=== PATIENT | female | born 1985 | race Two or more races ===

== ENCOUNTER 2019-10-08 19:10 | Emergency (ER) | payer SELFPAY ==
[2019-10-08] MEDS ORDERED: Proparacaine 0.5% Ophth Soln 15 ML Bottle EYELF STA (19:42)
[2019-10-08] MEDS ORDERED: Fluorescein 1 MG Ophth Strip EYELF ONE (19:42)
--- NOTE | 2019-10-08 19:55 | EDM.PDOC ---
ED HPI GENERAL MEDICAL PROBLEM - General Chief Complaint: General Stated Complaint: HEADACHE Time Seen by Provider: 10/08/19 19:23 Source of Information: Reports: Patient, Other (Friend) History Limitations: Reports: Language Barrier (Friend acted as storage receipt poster) - History of Present Illness INITIAL COMMENTS - FREE TEXT/NARRATIVE: Mrs. Davison is a very pleasant 34-year-old woman with no chronic medical problems and no past surgical history, who now presents to the ED stating that she has had a foreign body sensation in her left eye for the past 3 days, althou gh she does not recall anything actually flying into her eye. She states that she has not attempted to flush her left eye, nor instill any eyedrops into the eye. She also reports that she has felt lightheaded for the past 3 days, along with perioral and tongue tingling, today. She also reports feeling tingling and numbness in both of her hands, and the sensation that she is walking on rubber legs. She reports that she has been feeling thirsty since yesterday, but has increased her oral fluids only a little bit. She also reports having a BP of 138/88 at home, prior to coming to the ED, which concerned her. The patient states that she took 1 tablet of Tylenol 2 days ago, but no other medications since. Here in the ED, the patient is found to be hemodynamically stable, with a BP of 130/98, afebrile, saturating 100% on room air. Other than her presenting symptoms, the patient denies recent fever, chills, sore throat, ear pain, nasal or sinus congestion, cough, dyspnea, chest pain, palpitations, nausea, vomiting, constipation, diarrhea, abdominal pain, urinary symptoms, recent weight gain or weight loss, recent bloody bowel movements or black bowel movements, recent joint aches, headaches, or rashes. The patient does not have a PCP. Left Eye Pain Score (Numeric/FACES): 5 - Related Data Allergies Allergy/AdvReac Type Severity Reaction Status Date / Time No Known Allergies Allergy Verified 10/08/19 19:26 Home Meds: Home Meds Ascorbic Acid [Vitamin C] 1 tab PO DAILY 10/08/19 [History] Folic Acid 0.4 mg PO DAILY 10/08/19 [History] Vitamin E 1 tab PO DAILY 10/08/19 [History] Past Medical History - Past Health History Medical/Surgical History: Denies Medical/Surgical History Social & Family History - Tobacco Use Smoking Status *Q: Former Smoker Years of Tobacco use: 15 Packs/Tins Daily: 0.1 Month/Year Tobacco Last Used: Quit May 2019 Second Hand Smoke Exposure: No - Caffeine Use Caffeine Use: Reports: Coffee - Alcohol Use Alcohol Use History: Yes Alcohol Use Frequency: Socially - Recreational Drug Use Recreational Drug Use: No - Living Situation & Occupation Living situation: Reports: , with Spouse Occupation: Unemployed ED ROS GENERAL - Review of Systems Review Of Systems: Comprehensive ROS is negative, except as noted in HPI. ED EXAM, GENERAL - Physical Exam Exam: See Below Exam Limited By: No Limitations General Appearance: Alert, WD/WN, No Apparent Distress Eye Exam: Left Eye: Other (Examined under Singletary lamp following fluorescein, with no abnormalities found), Bilateral Eye: EOMI, Normal Inspection, PERRL Ears: Normal External Exam, Hearing Grossly Normal Nose: Normal Inspection Throat/Mouth: Normal Inspection, Normal Lips, Normal Voice, No Airway Compromise Head: Atraumatic, Normocephalic Neck: Normal Inspection, Full Range of Motion Respiratory/Chest: No Respiratory Distress, Lungs Clear, Normal Breath Sounds, No Accessory Muscle Use Cardiovascular: Normal Peripheral Pulses, Regular Rate, Rhythm, No Edema, No Gallop, No JVD, No Murmur, No Rub Peripheral Pulses: 3+: Radial (L), Radial (R) GI/Abdominal: Normal Bowel Sounds, Soft, Non-Tender, No Organomegaly, No Distention, No Abnormal Bruit, No Mass (Female) Exam: Deferred Rectal (Female) Exam: Deferred Back Exam: Normal Inspection, Full Range of Motion, NT Extremities: Normal Inspection, Normal Range of Motion, No Pedal Edema, Normal Capillary Refill Neurological: Alert, Oriented, Normal Cognition, No Motor/Sensory Deficits Psychiatric: Anxious Skin Exam: Warm, Dry, Intact, Normal Color, No Rash EKG INTERPRETATION EKG Date: 10/08/19 Time: 19:54 Rhythm: Other (Sinus bradycardia) Rate (Beats/Min): 58 [place]: Normal P-Wave: Present QRS: Normal ST-T: Normal QT: Normal Comparison: NA - No Prior EKG Course - Vital Signs Last Recorded V/S: Last Vital Signs Temp 36.2 C 10/08/19 19:23 Pulse 72 10/08/19 19:23 Resp 16 10/08/19 19:23 BP 113/98 H 10/08/19 19:23 Pulse Ox 100 10/08/19 19:23 Orthostatic Blood Pressure [ 108/95 Standing] Orthostatic Blood Pressure [ 113/93 Sitting] Orthostatic Blood Pressure [ 112/78 Supine] - Orders/Labs/Meds Orders: Active Orders 24 hr Category Date Time Status EKG Documentation Completion [RC] STAT Care 10/08/19 19:40 Active Orthostatic Vital Signs [RC] STAT Care 10/08/19 19:40 Active Chest 2V [CR] Stat Exams 10/08/19 19:40 Taken Labs: Laboratory Tests 10/08/19 10/08/19 10/08/19 Range/Units 19:56 20:05 20:05 WBC 7.44 (3.98-10.04) K/mm3 RBC 4.56 (3.98-5.22) M/mm3 Hgb 13.9 (11.2-15.7) gm/dl Hct 41.2 (34.1-44.9) % MCV 90.4 (79.4-94.8) fl MCH 30.5 (25.6-32.2) pg MCHC 33.7 (32.2-35.5) g/dl RDW Std Deviation 39.9 (36.4-46.3) fL Plt Count 328 (182-369) K/mm3 MPV 9.2 L (9.4-12.3) fl Neutrophils % (Manual) 50 (40-60) % Band Neutrophils % 0 (0-10) % Lymphocytes % (Manual) 39 (20-40) % Atypical Lymphs % 0 % Monocytes % (Manual) 5 (2-10) % Eosinophils % (Manual) 6 H (0.7-5.8) % Basophils % (Manual) 0 L (0.1-1.2) Platelet Estimate Adequate Plt Morphology Comment Normal RBC Morph Comment Normal D-Dimer, Quantitative < 0.19 L (0.19-0.50) mg/L Puncture Site Lt radial ABG pH 7.38 (7.35-7.45) ABG pCO2 39.1 (35.0-45.0) mmHg ABG pO2 94.0 (80.0-100.0) mmHg ABG HCO3 22.7 (22.0-26.0) meq/L ABG O2 Saturation 96.9 (96.0-97.0) % ABG Base Excess -1.6 (-2-2.0) Bardly Test Positive A-a Gradient 8 mmHg O2 Delivery Device Room air FiO2 21.00 (21.00-100.00) % Sodium (136-145) mEq/L Potassium (3.5-5.1) mEq/L Chloride (98-107) mEq/L Carbon Dioxide (21-32) mEq/L Anion Gap (5-15) BUN (7-18) mg/dL Creatinine (0.55-1.02) mg/dL Est Cr Clr Drug Dosing mL/min Estimated GFR (MDRD) (>60) mL/min BUN/Creatinine Ratio (14-18) Glucose (74-106) mg/dL Calcium (8.5-10.1) mg/dL Magnesium (1.8-2.4) mg/dl Total Bilirubin (0.2-1.0) mg/dL AST (15-37) U/L ALT (14-59) U/L Alkaline Phosphatase (46-116) U/L Total Protein (6.4-8.2) g/dl Albumin (3.4-5.0) g/dl Globulin gm/dL Albumin/Globulin Ratio (1-2) TSH 3rd Generation (0.358-3.74) uIU/mL HCG, Quant mIU/mL 10/08/19 10/08/19 Range/Units 20:05 20:05 WBC (3.98-10.04) K/mm3 RBC (3.98-5.22) M/mm3 Hgb (11.2-15.7) gm/dl Hct (34.1-44.9) % MCV (79.4-94.8) fl MCH (25.6-32.2) pg MCHC (32.2-35.5) g/dl RDW Std Deviation (36.4-46.3) fL Plt Count (182-369) K/mm3 MPV (9.4-12.3) fl Neutrophils % (Manual) (40-60) % Band Neutrophils % (0-10) % Lymphocytes % (Manual) (20-40) % Atypical Lymphs % % Monocytes % (Manual) (2-10) % Eosinophils % (Manual) (0.7-5.8) % Basophils % (Manual) (0.1-1.2) Platelet Estimate Plt Morphology Comment RBC Morph Comment D-Dimer, Quantitative (0.19-0.50) mg/L Puncture Site ABG pH (7.35-7.45) ABG pCO2 (35.0-45.0) mmHg ABG pO2 (80.0-100.0) mmHg ABG HCO3 (22.0-26.0) meq/L ABG O2 Saturation (96.0-97.0) % ABG Base Excess (-2-2.0) Bradly Test A-a Gradient mmHg O2 Delivery Device FiO2 (21.00-100.00) % Sodium 138 (136-145) mEq/L Potassium 4.3 (3.5-5.1) mEq/L Chloride 102 (98-107) mEq/L Carbon Dioxide 26 (21-32) mEq/L Anion Gap 14.3 (5-15) BUN 13 (7-18) mg/dL Creatinine 0.8 (0.55-1.02) mg/dL Est Cr Clr Drug Dosing 88.43 mL/min Estimated GFR (MDRD) > 60 (>60) mL/min BUN/Creatinine Ratio 16.3 (14-18) Glucose 98 (74-106) mg/dL Calcium 9.1 (8.5-10.1) mg/dL Magnesium 2.1 (1.8-2.4) mg/dl Total Bilirubin 0.2 (0.2-1.0) mg/dL AST 17 (15-37) U/L ALT 24 (14-59) U/L Alkaline Phosphatase 78 (46-116) U/L Total Protein 7.9 (6.4-8.2) g/dl Albumin 3.9 (3.4-5.0) g/dl Globulin 4.0 gm/dL Albumin/Globulin Ratio 1.0 (1-2) TSH 3rd Generation 2.114 (0.358-3.74) uIU/mL HCG, Quant < 1.0 mIU/mL Meds: Medications Discontinued Medications Generic Name Dose Route Start Last Admin Trade Name Freq PRN Reason Stop Dose Admin Fluorescein Sodium 1 mg 10/08/19 19:42 10/08/19 20:22 Ful-Ashley EYELF 10/08/19 19:43 1 mg ONETIME ONE Administration Proparacaine HCl 1 ml 10/08/19 19:42 10/08/19 20:22 Proparacaine 0.5% Ophth Soln EYELF 10/08/19 19:43 1 ml ONETIME STA Administration - Re-Assessments/Exams Free Text/Narrative Re-Assessment/Exam: 10/08/19 19:51 As above, the patient has had 3 days of the sensation of a foreign body in her left eye, along with lightheadedness for 3 days and perioral tingling today. She has had additional symptoms of bilateral hand and finger tingling, and the sensation of walking on rubber legs. Her blood pressure was measured at 138/88 at home, which she felt was high, although it is 113/98 here in the ED. It is noted that her oxygen saturation is 100% on room air. Her physical exam is completely benign. I instilled some proparacaine into the patient's left eye, followed by fluorescein, and examined her eye under a Wood's lamp, finding no abnormalities whatsoever - no foreign bodies or corneal abrasions. I have ordered a work-up that includes blood work, an ABG, a chest x-ray, orthostatics, and an ECG. 10/08/19 21:08 Two-view chest radiograph appears to be grossly normal. The cardiac silhouette is within normal limits. No pulmonary vascular congestion. No pleural effusions. No focal infiltrate. No pneumothorax. Formal read per the Radiologist pending. The patient's CBC is unremarkable. Her CMP is unremarkable. Her magnesium level is within normal limits at 2.1. Her TSH is within normal limits at 2.114. Her D-dimer is undetectably low. Her quantitative hCG is undetectably low. Her ABG is normal. Orthostatics have not yet been obtained. 10/08/19 21:42 The patient is not orthostatic. 10/08/19 21:47 Test results discussed with the patient and her friend. As above, today's work- up is entirely unremarkable, finding no abnormalities. I explained that with a negative work-up, I cannot tell her the cause of her symptoms, however, I cannot tell her what is not the room. I suspect, based on her symptoms and her saturation of 100% on room air, that her symptoms are due to anxiety, and the patient agreed. She stated that she got about a year ago, and that she is out here with no family. Sometimes she feels overwhelmed. I recommended that we refer her to the clinic where she can establish a PCP and discuss treatment options for anxiety. She agreed. Departure - Departure Time of Disposition: 21:49 Disposition: Home, Self-Care 01 Condition: Good Clinical Impression: Anxiety - Discharge Information *PRESCRIPTION DRUG MONITORING PROGRAM REVIEWED*: Not Applicable *COPY OF PRESCRIPTION DRUG MONITORING REPORT IN PATIENT DORIAN: Not Applicable Referrals: PCP,None [Primary Care Provider] - Radha Palencia NP [Nurse Practitioner] - Forms: ED Department Discharge Additional Instructions: You were seen in the emergency room for 3 days of the sensation of a foreign body in your left eye, along with lightheadedness for 3 days and tingling in and around your mouth today. You had additional symptoms of tingling and numbness of both of your hands and fingers, and the sensation of walking on rubber legs. Work-up in the ER included blood work, an arterial blood gas, positional blood pressure checks, a chest x-ray, and an ECG. Your entire work-up was unremarkable, finding no abnormalities. You do not have a blood clot in your lungs. You are not hyperthyroid. You are not . You are not anemic. No electrolyte abnormalities were found. You are not intravascularly depleted. Based on your history, physical exam, and ER test, we suspect that your symptoms are due to anxiety. We recommend that you follow-up with Radha Palencia NP, or one of the other providers in the clinic, to establish a PCP and to discuss treatment options for anxiety. If any other problems, please do not hesitate to return to the ER. Sepsis Event Note (ED) - Evaluation Sepsis Screening Result: No Definite Risk - Focused Exam Vital Signs: Vital Signs Temp Pulse Resp BP Pulse Ox 10/08/19 19:23 36.2 C 72 16 113/98 H 100 - My Orders Last 24 Hours: My Active Orders 10/08/19 19:40 EKG Documentation Completion [RC] STAT Orthostatic Vital Signs [RC] STAT Chest 2V [CR] Stat - Assessment/Plan Last 24 Hours: My Active Orders 10/08/19 19:40 EKG Documentation Completion [RC] STAT Orthostatic Vital Signs [RC] STAT Chest 2V [CR] Stat
--- NOTE | 2019-10-09 06:59 | CR ---
Chest: 2 views of the chest were obtained. Comparison: No prior chest imaging is available. Heart size and mediastinum are normal. Nodule is noted within the left upper hilum. This is either due to vessel on end or granuloma. Lungs otherwise are clear. Bony structures appear within normal limits. Impression: 1. Nothing acute is seen on 2 view chest x-ray. Diagnostic code #2 This report was dictated in MDT
== END 2019-10-08 21:59 | disposition home or self-care (01) ==
LOC: JD.ED 19:10 → EDBD 19:10 → JD.ED 21:59
DX: F41.9 Anxiety disorder, unspecified (principal); Z87.891 Personal history of nicotine dependence; R00.1 Bradycardia, unspecified
CPT/HCPCS: 36415; 36600; 71046; 71046-26; 80053; 82803; 83735; 84443; 84702; 85007; 85027; 85379; 93005; 93010; 99283; 99284-25

== ENCOUNTER 2020-01-27 13:32 | Emergency (ER) | payer SELFPAY ==
[2020-01-27] MEDS ORDERED: Sodium Chloride 0.9% 10 ML Syringe FLUSH PRN (14:02)
[2020-01-27] MEDS ORDERED: Prochlorperazine 10 MG/2 ML SDV IVPUSH ONE (14:02)
[2020-01-27] MEDS ORDERED: Ketorolac 30 MG/ML SDV IVPUSH ONE (14:03)
[2020-01-27] MEDS ORDERED: diphenhydrAMINE 50 MG/ML SDV IVPUSH ONE (14:03)
--- NOTE | 2020-01-27 15:04 | EDM.PDOC ---
ED HPI GENERAL MEDICAL PROBLEM - General Chief Complaint: Headache Stated Complaint: HEADACHE Time Seen by Provider: 01/27/20 13:45 Source of Information: Reports: Patient History Limitations: Reports: Language Barrier - History of Present Illness INITIAL COMMENTS - FREE TEXT/NARRATIVE: The patient presents with a headache and some right sided neck pain. This started about 5 days ago. She has no numbness or weakness. She has no fever, chills, cough, congestion, runny nose, chest pain or shortness of breath. She has no abdominal pain, nausea, or vomiting. She has no history of migraines. Onset: Gradual Duration: Day(s): (5) Location: Reports: Head Quality: Reports: Ache Severity: Severe Improves with: Reports: None Worsens with: Reports: None Associated Symptoms: Reports: Headaches. Denies: Chest Pain, Cough, Fever/Chills, Nausea/Vomiting, Shortness of Breath Headache Pain Score (Numeric/FACES): 8 - Related Data Allergies Allergy/AdvReac Type Severity Reaction Status Date / Time No Known Allergies Allergy Verified 01/27/20 13:51 Home Meds: Home Meds . [No Known Home Meds] 01/27/20 [History] Past Medical History - Past Health History Medical/Surgical History: Denies Medical/Surgical History Social & Family History - Tobacco Use Tobacco Use Status *Q: Former Tobacco User Used Tobacco, but Quit: Yes Month/Year Tobacco Last Used: 1 year ago - Caffeine Use Caffeine Use: Reports: None - Recreational Drug Use Recreational Drug Use: No - Living Situation & Occupation Living situation: Reports: , with Spouse Occupation: Unemployed ED ROS GENERAL - Review of Systems Review Of Systems: See Below Constitutional: Reports: No Symptoms HEENT: Reports: No Symptoms Respiratory: Reports: No Symptoms Cardiovascular: Reports: No Symptoms Endocrine: Reports: No Symptoms GI/Abdominal: Reports: No Symptoms : Reports: No Symptoms Musculoskeletal: Reports: Neck Pain Skin: Reports: No Symptoms Neurological: Reports: Headache - Physical Exam Exam: See Below Exam Limited By: No Limitations General Appearance: Alert, No Apparent Distress Ears: Normal External Exam Nose: Normal Inspection Head Exam: Atraumatic, Normocephalic Neck: Normal Inspection Respiratory/Chest: No Respiratory Distress, Lungs Clear, Normal Breath Sounds Cardiovascular: Regular Rate, Rhythm, No Edema, No Murmur GI/Abdominal: Soft, Non-Tender, No Organomegaly, No Mass Neuro Exam (Abbreviated): Alert, Oriented, No Motor/Sensory Deficits Course - Vital Signs Last Recorded V/S: Last Vital Signs Temp 97.6 F 01/27/20 13:44 Pulse 71 01/27/20 13:44 Resp 16 01/27/20 13:44 BP 122/83 01/27/20 13:44 Pulse Ox 99 01/27/20 13:44 - Orders/Labs/Meds Orders: Active Orders 24 hr Category Date Time Status Peripheral IV Care [RC] . DIRECTED Care 01/27/20 14:02 Active Head wo Cont [CT] Stat Exams 01/27/20 14:03 Taken Sodium Chloride 0.9% [Saline Flush] Med 01/27/20 14:02 Active 10 ml FLUSH ASDIRECTED PRN Peripheral IV Insertion Adult [OM.PC] Routine Oth 01/27/20 14:02 Ordered Medication Orders Sodium Chloride (Saline Flush) 10 ml FLUSH ASDIRECTED PRN PRN Reason: Keep Vein Open Last Admin: 01/27/20 14:46 Dose: 10 ml Documented by: FRIEDA Obrien: Medications Generic Name Dose Route Start Last Admin Trade Name Freq PRN Reason Stop Dose Admin Sodium Chloride 10 ml 01/27/20 14:02 01/27/20 14:46 Saline Flush FLUSH 10 ml ASDIRECTED PRN Administration Keep Vein Open Discontinued Medications Generic Name Dose Route Start Last Admin Trade Name Freq PRN Reason Stop Dose Admin Diphenhydramine HCl 50 mg 01/27/20 14:03 01/27/20 14:35 Benadryl IVPUSH 01/27/20 14:04 50 mg ONETIME ONE Administration Ketorolac Tromethamine 30 mg 01/27/20 14:03 01/27/20 14:35 Toradol IVPUSH 01/27/20 14:04 30 mg ONETIME ONE Administration Prochlorperazine Edisylate 10 mg 01/27/20 14:02 01/27/20 14:35 Compazine IVPUSH 01/27/20 14:03 10 mg ONETIME ONE Administration - Re-Assessments/Exams Free Text/Narrative Re-Assessment/Exam: 01/27/20 15:[address] of her head, IV saline lock, compazine 10mg IV, toradol 30mg IV, and benadryl 50mg IV. The CT of her head shows nothing acute. I will check on her to see how she is doing. 01/27/20 15:27 She feels better. I will discharge her home. Departure - Departure Time of Disposition: 15:30 Disposition: Home, Self-Care 01 Condition: Good Clinical Impression: Headache Qualifiers: Headache type: other headache syndrome Qualified Code(s): G44.89 - Other headache syndrome - Discharge Information *PRESCRIPTION DRUG MONITORING PROGRAM REVIEWED*: Not Applicable *COPY OF PRESCRIPTION DRUG MONITORING REPORT IN PATIENT DORIAN: Not Applicable Referrals: PCP,None [Primary Care Provider] - Susy Batista CIRCUIT JUDGE [Nurse Practitioner] - 1 Week Forms: ED Department Discharge Additional Instructions: Go home and rest. Please return if you are worse. Take tylenol or motrin for any more headaches. Sepsis Event Note (ED) - Evaluation Sepsis Screening Result: No Definite Risk - Focused Exam Vital Signs: Vital Signs Temp Pulse Resp BP Pulse Ox 01/27/20 13:44 97.6 F 71 16 122/83 99 - My Orders Last 24 Hours: My Active Orders 01/27/20 14:02 Peripheral IV Care [RC] . DIRECTED Sodium Chloride 0.9% [Saline Flush] 10 ml FLUSH ASDIRECTED PRN Peripheral IV Insertion Adult [OM.PC] Routine 01/27/20 14:03 Head wo Cont [CT] Stat - Assessment/Plan Last 24 Hours: My Active Orders 01/27/20 14:02 Peripheral IV Care [RC] . DIRECTED Sodium Chloride 0.9% [Saline Flush] 10 ml FLUSH ASDIRECTED PRN Peripheral IV Insertion Adult [OM.PC] Routine 01/27/20 14:03 Head wo Cont [CT] Stat
--- NOTE | 2020-01-31 13:19 | CT ---
PROCEDURE INFORMATION: Exam: CT Head Without Contrast Exam date and time: 01/27/2020 2:16 PM Age: 34 years old Clinical indication: Pain; Headache TECHNIQUE: Imaging protocol: Computed tomography of the head without contrast. Radiation optimization: All CT scans at this facility use at least one of these dose optimization techniques: automated exposure control; mA and/or kV adjustment per patient size (includes targeted exams where dose is matched to clinical indication); or iterative reconstruction. COMPARISON: No relevant prior studies available. FINDINGS: Brain: Normal. No hemorrhage. Unremarkable white matter. No mass effect. Cerebral ventricles: No ventriculomegaly. Bones/joints: Unremarkable. No acute fracture. Paranasal sinuses: Visualized sinuses are unremarkable. No fluid levels. Mastoid air cells: Visualized mastoid air cells are well aerated. Soft tissues: Unremarkable. IMPRESSION: No acute intracranial abnormality. Thank you for allowing us to participate in the care of your patient. Dictated and Authenticated by: Tania Pierre MD 01/27/2020 3:37 PM Central Time ([place] & [place]) EDITH
== END 2020-01-27 15:52 | disposition home or self-care (01) ==
LOC: JD.ED 13:32
DX: G44.89 Other headache syndrome (principal); M54.2 Cervicalgia; Z87.891 Personal history of nicotine dependence
CPT/HCPCS: 70450; 96374; 96375; 99284; J0780; J1200; J1885

== ENCOUNTER 2022-04-01 00:23 | Emergency (ER) | payer BC ==
[2022-04-01 06:24] LABS: CORONAVIRUS COVID-19 NAA NEGATIVE (NEGATIVE)
== END 2022-04-01 06:45 | disposition home or self-care (01) ==
LOC: JD.ED 00:23
DX: G44.89 Other headache syndrome (principal); F41.9 Anxiety disorder, unspecified; R11.0 Nausea; Z86.16 Personal history of COVID-19; Z20.822 Contact with and (suspected) exposure to COVID-19
CPT/HCPCS: 0241U; 99284